=== PATIENT | male | born 1965 | race Caucasian/White ===

== ENCOUNTER 2016-06-26 19:17 | Emergency (ER) | payer BC ==
[2016-06-26 21:30] VITALS: BP 138/82
--- NOTE | 2016-06-26 21:39 | UC ---
General HPI - HPI Summary HPI Summary: complaint of rash that surrounded a tick bite site noticed it yesterday afternoon red rash has been getting better denies fever and pain - History of Current Complaint Chief Complaint: Joel Stated Complaint: TICK Time Seen by Provider: 06/26/16 21:29 Hx Obtained From: Patient - Allergy/Home Medications Allergies/Adverse Reactions: Allergies Allergy/AdvReac Type Severity Reaction Status Date / Time No Known Allergies Allergy Verified 06/26/16 21:28 Home Medications: Home Medications Omeprazole CAP* [Prilosec CAP* 20 MG] 20 mg PO BEDTIME 06/26/16 [History Confirmed 06/26/16] PMH/Surg Hx/FS Hx/Imm Hx Previously Healthy: Yes Endocrine History Of: Denies: Diabetes Cardiovascular History Of: Reports: Hypertension Denies: Cardiac Disorders Respiratory History Of: Denies: Asthma - Surgical History Surgical History: Yes Surgery Procedure, Year, and Place: kidney stone removal, intestinal polyp removal 1976 - Family History Known Family History: Positive: Hypertension, Other - kidney stones - Social History Occupation: Employed Full-time Lives: With Family Alcohol Use: Rare Substance Use Type: None Smoking Status (MU): Never Smoked Tobacco - Immunization History Most Recent Influenza Vaccination: none Review of Systems Constitutional: Negative Skin: Rash Eyes: Negative ENT: Negative Respiratory: Negative Cardiovascular: Negative Gastrointestinal: Negative Genitourinary: Negative Motor: Negative Neurovascular: Negative Musculoskeletal: Negative Neurological: Negative Psychological: Negative All Other Systems Reviewed And Are Negative: Yes Physical Exam Triage Information Reviewed: Yes Appearance: No Pain Distress, Well-Nourished Vital Signs: Initial Vital Signs Temp 97.9 F 06/26/16 21:24 Pulse 79 06/26/16 21:24 Resp 17 06/26/16 21:24 BP 138/82 06/26/16 21:24 Pulse Ox 99 06/26/16 21:24 Vital Signs Reviewed: Yes Eyes: Positive: Conjunctiva Clear ENT: Positive: Pharynx normal, TMs normal Neck: Positive: Supple, No Lymphadenopathy Respiratory: Positive: Lungs clear, Normal breath sounds, No respiratory distress Cardiovascular: Positive: RRR, No Murmur, Pulses Normal Abdomen Description: Positive: Nontender, Soft Bowel Sounds: Positive: Present Musculoskeletal: Positive: No Edema Neurological: Positive: Alert Psychological Exam: Normal Skin: Positive: rashes, Other - left arm with tick bite surrounded by 5x4 cm area of erythema Course/Dx - Course Course Of Treatment: exam completed. will treat for possible lyme exposure- followup with PCP - Differential Dx - Multi-Symptom Provider Diagnoses: tick bite- rash Discharge - Discharge Plan Condition: Stable Disposition: HOME Prescriptions: DOXYcycline CAP(*) [DOXYcycline 100MG CAP(*)] 100 mg PO BID #20 cap DOXYcycline CAP(*) [DOXYcycline 100MG CAP(*)] 100 mg PO BID #22 cap Patient Education Materials: Tick Bite (ED), Lyme Disease (ED) Referrals: Hair Lott MD [Primary Care Provider] - Additional Instructions: Please take antibiotic as directed Increase fluids and rest Take acetaminophen or ibuprofen for fever or pain Please review your discharge instructions. If your symptoms do not improve please call your primary care provider or return to urgent care.
== END 2016-06-26 21:58 | disposition home or self-care (01) ==
LOC: UCCORT 19:17
DX: S40.862A Insect bite (nonvenomous) of left upper arm, initial encounter (principal); W57.XXXA Bitten or stung by nonvenomous insect and other nonvenomous arthropods, initial encounter; Y93.9 Activity, unspecified; Y92.9 Unspecified place or not applicable; R21 Rash and other nonspecific skin eruption; I10 Essential (primary) hypertension
CPT/HCPCS: 99212; G0463

== ENCOUNTER 2017-06-28 17:22 | Emergency (ER) | payer BC ==
[2017-06-28 18:33] VITALS: BP 117/75
--- NOTE | 2017-06-28 18:56 | UC ---
Respiratory Complaint HPI - HPI Summary HPI Summary: Per crnp ""I have a sinus infection..." c/o post nasal drip and bilateral ear pain x 1 week. Then today began having sinus pressure and headache. " -Here with his . significant pain over rt cheek. cold sx for 10-14 days. has had sinus infection. doesnt want to uses steroid nasal spray. mild cough, no wheezing. no asthma or COPD. felt better and then sx got worse. - History of Current Complaint Chief Complaint: UCGeneralIllness Stated Complaint: PLUGGED EARS, COLD SYMPTOMS Time Seen by Provider: 06/28/17 18:42 Pain Intensity: 2 - Allergies/Home Medications Allergies/Adverse Reactions: Allergies Allergy/AdvReac Type Severity Reaction Status Date / Time No Known Allergies Allergy Verified 06/28/17 18:29 Home Medications: Home Medications Allopurinol TAB* [Zyloprim 300 MG TAB*] 300 mg PO DAILY 06/28/17 [History Confirmed 06/28/17] Atorvastatin* [Lipitor 20 MG*] 20 mg PO DAILY 06/28/17 [History Confirmed ] PMH/Surg Hx/FS Hx/Imm Hx Previously Healthy: Yes Endocrine History: Dyslipidemia Cardiovascular History: Hypertension - Surgical History Surgical History: Yes Surgery Procedure, Year, and Place: kidney stone removal, intestinal polyp removal 1976 - Family History Known Family History: Positive: Hypertension, Respiratory Disease - sister w/ asthma & allergies, Other - kidney stones - Social History Alcohol Use: Rare Substance Use Type: None Smoking Status (MU): Never Smoked Tobacco - Immunization History Most Recent Influenza Vaccination: none Review of Systems Constitutional: Fatigue Skin: Negative Eyes: Negative ENT: Ear Ache, Nasal Discharge, Sinus Congestion, Sinus Pain/Tenderness Respiratory: Cough - none during visit Cardiovascular: Negative Gastrointestinal: Negative Genitourinary: Negative Motor: Negative Neurovascular: Negative Musculoskeletal: Negative Neurological: Negative Psychological: Negative Is Patient Immunocompromised?: No All Other Systems Reviewed And Are Negative: Yes Physical Exam Triage Information Reviewed: Yes Appearance: Well-Appearing, No Pain Distress, Well-Nourished - very pleasant Vital Signs: Initial Vital Signs Temp 98.3 F 06/28/17 18:25 Pulse 81 06/28/17 18:25 Resp 15 06/28/17 18:25 BP 117/75 06/28/17 18:25 Pulse Ox 98 06/28/17 18:25 Vital Signs Reviewed: Yes Eye Exam: Normal ENT Exam: Normal ENT: Positive: Hearing grossly normal, Pharyngeal erythema - + PND, Nasal congestion, TMs normal, Sinus tenderness - rt maxillary > left. Negative: TM bulging, TM dull, TM red, Tonsillar swelling, Tonsillar exudate Dental Exam: Normal Neck exam: Normal Neck: Positive: Supple, Nontender, No Lymphadenopathy Respiratory Exam: Normal Respiratory: Positive: Lungs clear, Normal breath sounds, No respiratory distress, No accessory muscle use. Negative: Crackles, Rhonchi, Stridor, Wheezing Cardiovascular Exam: Normal Cardiovascular: Positive: RRR, No Murmur, Pulses Normal Abdominal Exam: Normal Abdomen Description: Positive: Soft Musculoskeletal Exam: Normal Neurological Exam: Normal Psychological Exam: Normal Skin Exam: Normal UC Diagnostic Evaluation - Laboratory O2 Sat by Pulse Oximetry: 98 Respiratory Course/Dx - Course Course Of Treatment: sx x 10-14 days that improved and now worsse w/ tenderness focally over rt maxillarty sinus. treat w/ amox. disc risks/benefits and risk fo c diff. -they are very agreeable to plan. he is resistent to steroid nasal spray, nasal lavage. - Differential Dx/Diagnosis Differential Diagnosis/HQI/PQRI: Bronchitis, Sinusitis Provider Diagnoses: Sinusitis Discharge - Sign-Out/Discharge Documenting (check all that apply): Post-Discharge Follow Up - Discharge Plan Condition: Stable Disposition: HOME Prescriptions: Amoxicillin PO (*) [Amoxicillin 875 MG (*)] 875 mg PO BID #20 tab Patient Education Materials: Sinusitis (ED) Referrals: Hair Lott MD [Primary Care Provider] - 1 Week Additional Instructions: -Make sure to take a probiotic daily while on antibiotics to help prevent a potential complication of antibiotic use called c diff. Some well known brands that can be found OTC are florastor, PercuVision and [id number]. Make sure to complete the entire prescription unless advised otherwise by your health care provider. -Using flonase nasal spray will be helpful as well if you can tolerate it - Billing Disposition and Condition Condition: STABLE Disposition: HOME
== END 2017-06-28 19:06 | disposition home or self-care (01) ==
LOC: UCCORT 17:22
DX: J32.9 Chronic sinusitis, unspecified (principal)
CPT/HCPCS: 99212; G0463